=== PATIENT | male | born 1965 | race Caucasian/White ===

== ENCOUNTER 2021-12-16 10:17 | Outpatient (CLI) | payer MEDICAID, SELFPAY ==
--- NOTE | 2021-12-16 10:21 | CT_ITS ---
WS: [id number] LDCT LUNG CANCER SCREENING HISTORY: NICOTINE DEPENDENCE TECHNIQUE: Axial imaging performed from the apices to 1 cm below the costophrenic angles. Coronal and sagittal reformats are submitted with axial MIP series. All CT scans at [facility] use at least one of these dose optimization techniques: automated exposure control; mA and/or kV adjustment per patient size (includes targeted exams where dose is matched to clinical indication); or iterativ e reconstruction. DLP: 74.09 mGy.cm DIvol: Mean CTDIvol: 1.60 (mGy) COMPARISON: None available. Diagnostic quality: Satisfactory Lung Nodules: Pleural-based wedge-shaped nodule along the RIGHT minor fissure measures 15 mm. Irregul ar nodule extends along the minor fissure towards the RIGHT upper lobe. Otherwise lungs are clear. No additional mass or nodule. No endobronchial lesion. Heart: Normal size heart. No pericardial effusion. Other findings: No mediastinal or hilar adenopathy. Mild atherosclerosis aorta. Small hiatal hernia. No adrenal mass. Thoracic spondylitic changes. CT/CT lung screening [id number] IMPRESSION: LUNG-RADS: 4B-Suspicious FOLLOW UP: Chest CT with or without contrast OTHER FINDINGS (S MODIFIER): None.
== END 2021-12-16 10:18 | disposition home or self-care (01) ==
LOC: RAD 10:19
PROVIDERS: PCP Nurse Practitioner Family; Visit Provider Nurse Practitioner Family
DX: Z12.2 Encounter for screening for malignant neoplasm of respiratory organs (principal); F17.210 Nicotine dependence, cigarettes, uncomplicated
CPT/HCPCS: 71271

== ENCOUNTER → 2022-01-08 13:20 | Outpatient (BNVA) | payer MEDICAID, SELFPAY | PROVIDERS: PCP Nurse Practitioner Family; Visit Provider Internal Medicine Pulmonary Disease | DX: J45.909 Unspecified asthma, uncomplicated (principal); R06.02 Shortness of breath; J44.9 Chronic obstructive pulmonary disease, unspecified; Z71.6 Tobacco abuse counseling; F17.200 Nicotine dependence, unspecified, uncomplicated; R91.1 Solitary pulmonary nodule | CPT/HCPCS: 36415; 82103; 82785; 85025; 85651; 86003 ==

== ENCOUNTER 2022-03-24 14:42 | Outpatient (CLI) | payer MEDICAID, SELFPAY ==
--- NOTE | 2022-03-24 14:00 | CTR_ITS ---
PROCEDURE INFORMATION: Exam: CT Chest Without Contrast; Diagnostic Exam date and time: 03/24/2022 2:47 PM Age: 57 years old Clinical indication: Abnormal findings; Lung mass or nodule; Not specified; Patient HX: 3 month follow up lung nodules seen on lung cancer screening CT; Additional info: 3 month f/u lung nodule TECHNIQUE: Imaging protocol: Diagnostic computed tomography of the chest without contrast. Radiation optimization: All CT scans at this facility use at least one of these dose optimization techniques: automated exposure control; mA and/or kV adjustment per patient size (includes targeted exams where dose is matched to clinical indication); or iterative reconstruction. COMPARISON: CT lung screening [id number] 12/16/2021 10:23 AM RADIATION DOSE METRICS: Total DLP (mGy-cm): 810 FINDINGS: Lungs: There is irregular pleural thickening or nodule along the right chest wall and involving the minor fissure measuring approximately 13 x 20 x 6 mm in thickness. Allowing for the technical differences between the studies this is not significantly changed. The appearance is most suggestive of an area of pleural scarring. Additional six-month follow-up is suggested. As this was described as suspicious on the report of 12/16/2021 it may be prudent to get further evaluation such as with tissue sampling or PET-CT scan suggested for further evaluation of this is not already been done. Pleural spaces: See Lungs finding. No pleural effusion. Heart: Unremarkable. No cardiomegaly. No pericardial effusion. Coronary arteries: There is no evidence of atherosclerotic coronary artery calcifications. Lymph nodes: There are small paratracheal lymph nodes not significantly changed but no adenopathy. Vasculature: Unremarkable. No aortic aneurysm. Bones/joints: Unremarkable. No acute fracture. Soft tissues: There is mild nonspecific gynecomastia. CT/CT chest wo con [id number] IMPRESSION: Pleural base nodule or scarring in the right lung not significantly changed from 12/16/2021. Further evaluation or follow-up is recommended above.
== END 2022-03-24 14:43 | disposition home or self-care (01) ==
LOC: RAD 14:42
PROVIDERS: PCP Nurse Practitioner Family; Visit Provider Internal Medicine Pulmonary Disease
DX: R91.1 Solitary pulmonary nodule (principal)
CPT/HCPCS: 71250

== ENCOUNTER 2022-07-13 14:58 | Outpatient (CLI) | payer MEDICAID, SELFPAY ==
--- NOTE | 2022-07-13 15:08 | CT_ITS ---
WS: [id number] CT ABDOMEN WITHOUT CONTRAST HISTORY: ABDOMINAL PAIN Contiguous single phase 5 mm axial imaging performed to the abdomen. Oral contrast has not been provi ded. Coronal and sagittal reformats are submitted. All CT scans at [facility] use at least on e of these dose optimization techniques: automated exposure control; mA and/or kV adjustment per alvarez ent size (includes targeted exams where dose is matched to clinical indication); or iterative reconst ruction. IV CONTRAST: None Oral contrast: No DLP: 258.74 mGy.cm COMPARISON: None available. Lower thorax: Lung bases are clear. Heart is normal size. Small hiatal hernia. Liver/biliary system: Normal size with no intrahepatic dilatation. Gallbladder: Normal. No gallstones or wall thickening. No pericholecystic fluid. Pancreas: Normal size pancreas and pancreatic duct. No adjacent inflammation. Spleen: Normal size spleen. No mass or infarct. Adrenal glands: Normal. Right kidney: No obstruction. Left kidney: Minimal perinephric stranding. No obstruction. Aorta: Mild atherosclerosis with no aneurysm. Lymphadenopathy: None. Free fluid: None. GI tract: As visualized within the abdomen normal. Normally distended stomach. Mild constipation with in the transverse and ascending colon. No obstructive pattern. Abdominal wall: Unremarkable abdominal wall. No hernia. Visualized osseous structures: Mild degenerative spondylitic changes in the lumbar spine. CT/CT abdomen wo con [id number] IMPRESSION: 1. No acute abdominal abnormalities identified. 2. Mild constipation the visualized transverse and ascending colon. 3. No renal obstruction. 4. No abdominal wall hernia.
== END 2022-07-13 14:59 | disposition home or self-care (01) ==
LOC: RAD 15:01
PROVIDERS: PCP Nurse Practitioner Family; Visit Provider Nurse Practitioner Family
DX: R10.9 Unspecified abdominal pain (principal); K59.00 Constipation, unspecified
CPT/HCPCS: 74150

== ENCOUNTER 2022-10-25 17:38 | Emergency (ER) | payer MEDICAID, SELFPAY ==
[2022-10-25 17:51] VITALS: BP 138/88; PULSE 84; RESP 16; TEMP 36.8; O2SAT 97; BMI 23.5
--- NOTE | 2022-10-25 18:33 | W.ED.DENTAL ---
HPI - Dental/Oral General: Chief complaint: Dental/Oral Stated complaint: dental Time Seen by Provider: 10/25/22 18:32 History of Present Illness: 57-year-old male patient comes in today for complaints of right side jaw pain. Patient was started on clindamycin yesterday but reported minimal relief of pain with [id number] Tylenol and ibuprofen. Patient was also concerned due to some swelling that he felt that may have been worse. Patient appears nontoxic. Patient appears in mild to moderate pain. Associated symptoms: Denies fever(s) Review of Systems General: Reports: 10 or more systems reviewed and unremarkable except in HPI and below Const: Denies: fever(s) ENMT: Reports: dental pain Card: Denies: chest pain Resp: Denies: dyspnea GI: Denies: nausea or vomiting : Denies: flank pain Musc: Denies: neck pain Skin/Breast: Denies: rash PFSH ED PFSH: Medical History Scoliosis Type 2 diabetes mellitus Surgical History H/O left wrist surgery Social History Smoking and tobacco status: former smoker Physical Exam Const: COMMON NORMALS: alert HENMT: COMMON NORMALS: normocephalic HEAD & SCALP: normocephalic MOUTH: Normal oral and palatal mucosa present Neck/C-Spine: COMMON NORMALS: full ROM Resp: COMMON NORMALS: normal respiratory effort and clear to auscultation bilaterally AUSCULTATION: clear to auscultation bilaterally Cardio: COMMON NORMALS: regular rate RATE: regular rate GI: COMMON NORMALS: non-tender Back/Pelvis: COMMON NORMALS: thoracic and lumbar spine normal to inspection Extremity: COMMON NORMALS: full ROM Neuro: SENSORIUM/ORIENTATION: Yes alert Skin: COMMON NORMALS: turgor normal GENERAL SKIN EXAM: turgor normal Course Vital Signs: Vital signs: Vital Signs Temperature 98.2 F 10/25/22 17:51 Pulse Rate 84 10/25/22 17:51 Respiratory Rate 16 10/25/22 17:51 Blood Pressure 138/88 10/25/22 17:51 Pulse Oximetry 97 10/25/22 17:51 Oxygen Delivery Me thod Room Air 10/25/22 17:51 MDM - Dental/Oral Medical Decision Making 57-year-old male patient comes in today for complaints of increased dental pain. On exam patient has a carious tooth of the second molar with a missing first molar. Patient has erythema to the lateral gumline with swelling. Differential diagnosis includes but not limited to retropharyngeal abscess, floor mouth cellulitis, dental abscess, dental pain, dental caries. Believe the patient has a superficial dental abscess. No asymmetry is noted in the posterior pharynx. No other signs of severe illness is noted. Patient was given a dose of ceftriaxone IM due to his concern of worsening infection, he was recommended to continue with the clindamycin otherwise. Patient was given 30 mg of Toradol for his pain. Patient be continued on some hydrocodone for further pain relief at home. Patient reported understanding of care plan and need for follow-up or return to the ER. Discharge Plan Discharge Patient Disposition: Home Clinical Impression: Dental abscess Condition: Stable Prescriptions: New hydrocodone-acetaminophen 5-325 mg tablet 1 tab PO Q6H PRN (Reason: pain (scale score 7-10)) Qty: 7 0RF No Action epinephrine [EpiPen 2-Ilan] 0.3 mg/0.3 mL auto-injector 0.3 ml IM clindamycin HCl 150 mg capsule 450 mg PO TID 7 Days Qty: 63 0RF metformin 500 mg tablet 500 mg PO BID lisinopril 10 mg tablet 5 mg PO DAILY simvastatin 20 mg tablet 20 mg PO DAILY Discharge Orders: Discharge ED (Routine); Ordered 10/25/22 Ordered By: Jamie Coleman Referrals: Shellie Nails FNP [Primary Care Provider] - Discharge Diet: Usual diet Discharge Activity: Increase activity as tolerated Patient Instructions: Dental Abscess (ED), Opioid Safety Activity Restrictions/Additional Instructions: Home and rest. Drink plenty of water and fluids. Use acetaminophen and ibuprofen to control pain. Use hydrocodone for severe pain. Continue oral antibiotics as prescribed. Follow-up with dentist. Return to ED for worsening symptoms such as inability to hold fluids down, difficulty with swallowing, or shortness of breath. Coding Level of Care Code ED Group Marketing Vp for Herson Hoskins
[2022-10-25] MEDS: HYDROcodone-acetaminophen 5-325 mg Tablet 1 TAB PO (18:49)
[2022-10-25] MEDS: ketorolac 30 mg/mL INJ IM (18:49)
[2022-10-25] MEDS: cefTRIAXone 1,000 MG in water for injection-sterile 2.1 ML 2 MG IM (18:50)
== END 2022-10-25 19:15 | disposition home or self-care (01) ==
PROVIDERS: Emergency Provider Nurse Practitioner Family; PCP Nurse Practitioner Family
DX: K04.7 Periapical abscess without sinus (principal); E11.9 Type 2 diabetes mellitus without complications; Z79.84 Long term (current) use of oral hypoglycemic drugs; Z87.891 Personal history of nicotine dependence
CPT/HCPCS: 96372; 99284; J0696; J1885

== ENCOUNTER 2023-05-10 15:17 | Emergency (ER) | payer MEDICAID, SELFPAY ==
[2023-05-10 15:25] VITALS: BP 121/76; PULSE 93; RESP 12; TEMP 36.7; O2SAT 96; BMI 25.7
--- NOTE | 2023-05-10 15:30 | XRR_ITS ---
PROCEDURE INFORMATION: Exam: XR Chest Exam date and time: 05/10/2023 3:49 PM Age: 58 years old Clinical indication: Pain; Angina pectoris; Additional info: Chest pain TECHNIQUE: Imaging protocol: Radiologic exam of the chest. Views: 1 view. COMPARISON: CT chest con [id number] 03/24/2022 2:47 PM FINDINGS: Lungs: Unremarkable. No consolidation. Pleural spaces: Unremarkable. No pleural effusion. No pneumothorax. Heart/Mediastinum: Unremarkable. No cardiomegaly. Bones/joints: Unremarkable. XR/XR chest 1V portable [id number] IMPRESSION: No acute findings.
--- NOTE | 2023-05-10 15:30 | ECG_ITS ---
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 Measurements Intervals [place] Rate: 101 P: 83 HI: 148 QRS: 80 QRSD: 94 T: 67 QT: 332 QTc: 431 Interpretive Statements SINUS TACHYCARDIA No previous ECG available for comparison Electronically Signed On 05-10-2023 17:07:31 MARKET REPORTER by Dk Wood M.D. [id number]
[2023-05-10 16:28] LABS: Basophils # 0.1 10^3/uL (0.0-0.1); Basophils % 0.5 %; Eosinophils # 0.4 10^3/uL (0.0-0.8); Eosinophils % 3.5 %; Hematocrit 51.1 % (37-53); Lymphocytes # 2.2 10^3/uL (0.8-4.8); Lymphocytes % 21.4 %; Mean Corpuscular Hemoglobin 33.3 pg (27-33); Mean Platelet Volume 8.8 fL (7.4-10.4); Monocytes # 0.7 10^3/uL (0.2-0.9); Monocytes % 6.3 %; Neutrophils # 7.01 10^3/uL (1.8-7.7); Nucleated Red Blood Cells % 0 %; Platelet Count 222 10^3/cmm (157-399); Red Blood Count 5.38 10^6/uL (3.85-5.65)
[2023-05-10 16:53] LABS: Troponin(5th) Baseline 9 ng/L (0-15)
[2023-05-10 16:57] LABS: Alanine Aminotransferase 14 U/L (0-41); Albumin Level 4.9 g/dL (3.5-5.2); Alkaline Phosphatase 83 U/L (40-130); Anion Gap 16.7 (5-19); Aspartate Amino Transferase 17 U/L (0-40); Blood Urea Nitrogen 24 mg/dL (6-20); Calcium 9.5 mg/dL (8.5-10.5); Carbon Dioxide 25 mmol/L (22-29); Chloride 102 mmol/L (98-107); Globulin 2.6 g/dL (1.3-4.6); Glucose 141 mg/dL (65-115); Osmolality Calculated 294 mOsm/kg (285-295); Potassium 4.7 mmol/L (3.5-5.1); Sodium 139 mmol/L (136-145); Total Bilirubin 0.6 mg/dL (0.15-1.2); Total Protein 7.5 g/dL (6.6-8.7)
--- NOTE | 2023-05-10 17:37 | W.ED.CHESTPA ---
HPI - Chest Pain General: Chief Complaint: Chest Pain Stated Complaint: CHEST DISCOMFORT, PAIN IN BACK Time Seen by Provider: 05/10/23 17:32 History of Present Illness: 58-year-old male presents emergency department complaints of left upper back sharp stabbing pain that started when he woke up. He states the pain initially started out as an 8 and went to a 9 and is now at a 0 out of 10. He states that he felt like his pulse was racing and he was nauseated at the time that he woke up. He states his son came over and gave him some aspirin to chew and encouraged him to come be evaluated in the emergency department. He states he has no cardiac history and has never had heart problems. He states he intermittently smokes cigarettes and marijuana but nothing on a regular basis. He states he is pain-free at present. He denies shortness of breath nausea vomiting fevers chills or night sweats. He denies dizziness or feelings of syncope. Review of Systems General: Reports: 10 or more systems reviewed and unremarkable except in HPI and below Musc: Reports: back pain [facility] ED PFSH: Medical History Scoliosis Type 2 diabetes mellitus Surgical History H/O left wrist surgery Social History Smoking and tobacco/nicotine status: former use of tobacco/nicotine Physical Exam Narrative: EXAM NARRATIVE: Constitutional: the patient appears well nourished and of normal development. Vital signs as documented. No acute distress at present. Alert and oriented-to person, place, time and situation. Head, eyes, ears, nose, mouth, throat: Normocephalic, atraumatic. Pupils-equal, round, reactive to light. No scleral icterus. Normal-appearing external ears. Normal appearing nasal turbinates, no drainage. No obvious oral lesions, posterior oropharynx without erythema or exudates. Neck: Supple, trachea is midline, no lymphadenopathy, no jugular venous distension, thyromegaly, or carotid bruits. Carotid upstrokes are brisk bilaterally. Lungs: clear to auscultation to all lung last. Symmetrical rise and fall of chest, no obvious signs of increased work of breathing at present. Cardiac: Regular rate and rhythm, positive S1, S2. No murmurs, rubs or gallops that I can appreciate Abdomen: Soft, non-tender to palpation, normal active bowel sounds to all quadrants. No palpable masses, no organomegaly and abdominal bruits. Extremities: 2+ pulses in the upper extremities that are equal bilaterally, 2+ pulses in the lower extremities that are equal bilaterally. Non-edematous. Moves all extremities well, sensation to all extremities are noted. Skin: Warm, dry, intact. Course Vital Signs: Vital signs: Vital Signs Temperature 98.0 F 05/10/23 15:25 Pulse Rate 93 05/10/23 15:25 Respiratory Rate 12 05/10/23 15:25 Blood Pressure 121/76 05/10/23 15:25 Pulse Oximetry 96 05/10/23 15:25 Oxygen Delivery Me thod Room Air 05/10/23 15:25 MDM - Chest Pain Medical Decision Making Physical exam completed and documented I will obtain a chest x-ray twelve-lead EKG cardiac enzymes as well as a CBC and CMP. I suspect most likely the patient's left upper back discomfort is related to musculoskeletal spasm and not cardiac related. Given the patient's negative findings and lack of significant EKG findings I will discharge the patient and recommend follow-up with his primary care provider. Medical Records I reviewed the patient's medical records. Lab Data I reviewed the patient's lab results. 05/10/23 16:11 05/10/23 16:11 Radiology Impressions Chest X-Ray 05/10/23 15:30 IMPRESSION: No acute findings. Laboratory Results WBC 10.30 10^3/uL (3.29-11.43) 05/10/23 16:11 RBC 5.38 10^6/uL (3.85-5.65) 05/10/23 16:11 Hgb 17.90 g/dL (11.27-16.99) H 05/10/23 16:11 Hct 51.1 % (37-53) 05/10/23 16:11 MCV 95.0 fl (82-101) 05/10/23 16:11 MCH 33.3 pg (27-33) H 05/10/23 16:11 MCHC 35.0 g/dL (30-55) 05/10/23 16:11 RDW 12.0 % (12.1-15.1) L 05/10/23 16:11 Plt Count 222 10^3/cmm (157-399) 05/10/23 16:11 MPV 8.8 fL (7.4-10.4) 05/10/23 16:11 Neut % (Auto) 68.0 % 05/10/23 16:11 Lymph % (Auto) 21.4 % 05/10/23 16:11 [place] % (Auto) 6.3 % 05/10/23 16:11 Eos % (Auto) 3.5 % 05/10/23 16:11 Baso % (Auto) 0.5 % 05/10/23 16:11 Neut # (Auto) 7.01 10^3/uL (1.8-7.7) 05/10/23 16:11 Lymph # (Auto) 2.2 10^3/uL (0.8-4.8) 05/10/23 16:11 [place] # (Auto) 0.7 10^3/uL (0.2-0.9) 05/10/23 16:11 Eos # (Auto) 0.4 10^3/uL (0.0-0.8) 05/10/23 16:11 Baso # (Auto) 0.1 10^3/uL (0.0-0.1) 05/10/23 16:11 Nucleated RBC % (auto) 0 % 05/10/23 16:11 Nucleated RBCs # 0.0 /100WBC 05/10/23 16:11 Sodium 139 mmol/L (136-145) 05/10/23 16:11 Potassium 4.7 mmol/L (3.5-5.1) 05/10/23 16:11 Chloride 102 mmol/L (98-107) 05/10/23 16:11 Carbon Dioxide 25 mmol/L (22-29) 05/10/23 16:11 Anion Gap 16.7 (5-19) 05/10/23 16:11 BUN 24 mg/dL (6-20) H 05/10/23 16:11 Creatinine 0.9 mg/dL (0.7-1.2) 05/10/23 16:11 GFR Calculation 87.0 mL/min (90-130) L 05/10/23 16:11 Glucose 141 mg/dL (65-115) H 05/10/23 16:11 Calculated Osmolality 294 mOsm/kg (285-295) 05/10/23 16:11 Calcium 9.5 mg/dL (8.5-10.5) 05/10/23 16:11 Total Bilirubin 0.6 mg/dL (0.15-1.2) 05/10/23 16:11 AST 17 U/L (0-40) 05/10/23 16:11 ALT 14 U/L (0-41) 05/10/23 16:11 Alkaline Phosphatase 83 U/L (40-130) 05/10/23 16:11 Troponin T Baseline 9 ng/L (0-15) 05/10/23 16:11 Total Protein 7.5 g/dL (6.6-8.7) 05/10/23 16:11 Albumin 4.9 g/dL (3.5-5.2) 05/10/23 16:11 Globulin 2.6 g/dL (1.3-4.6) 05/10/23 16:11 All radiology interpretation(s) finalized by discharge EKG Data EKG 1: Interpretation: Twelve-lead EKG obtained at 1520 reviewed at 15 35 demonstrates sinus tachycardia with a heart rate of 101, WA interval 148, QRS duration 94, QT 332, QTc 390 at present there is no ST elevation or depression to demonstrate acute ischemia or infarction. EKG 2: Interpretation: Repeat twelve-lead EKG at 1740 and reviewed at 1742 demonstrates sinus rhythm, ventricular rate 83, WA interval 190, QRS duration 97, QT 370, QTc [address] elevation or depression to demonstrate acute ischemia or infarction at present. Discharge Plan Discharge Patient Disposition: Home Clinical Impression: Spasm of skeletal muscle of thorax, Back pain Condition: Stable Prescriptions: No Action epinephrine [EpiPen 2-Ilan] 0.3 mg/0.3 mL auto-injector 0.3 ml IM metformin 500 mg tablet 500 mg PO BID lisinopril 10 mg tablet 5 mg PO DAILY simvastatin 20 mg tablet 20 mg PO DAILY hydrocodone-acetaminophen 5-325 mg tablet 1 tab PO BID PRN (Reason: pain) 3 Days Qty: 6 0RF doxycycline monohydrate 100 mg capsule 100 mg PO BID 10 Days Qty: 20 0RF Discharge Orders: Discharge ED (Routine); Ordered 05/10/23 Ordered By: Julio Thompson Referrals: Shellie Nails FNP [Primary Care Provider] - Discharge Diet: Usual diet Discharge Activity: Resume usual activity Patient Instructions: Opioid Safety, Pain Management Activity Restrictions/Additional Instructions: Activity Restrictions/Additional Instructions: Thank you for choosing [facility] for your healthcare needs today. Please realize that you were seen in the Emergency Department and that we are providing you with an emergency medical screening exam and this may not be a complete and all inclusive of all the testing and or medical work-up that you may need to determine your ailment or severity of your illness. It is very important that you follow-up as instructed with your Primary care provider or Specialist for additional evaluation and to discuss your medical treatment plan. You may return to the Emergency Department should you have concerns or if your condition changes or worsens in any way. Coding Level of Care Code ED Biofuels Manager for Herson Hoskins
--- NOTE | 2023-05-10 17:40 | ECG_ITS ---
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 Measurements Intervals [place] Rate: 83 P: 82 DE: 190 QRS: 69 QRSD: 97 T: 65 QT: 370 QTc: 435 Interpretive Statements SINUS RHYTHM SEPTAL MYOCARDIAL INFARCTION , PROBABLY OLD [40+ ms Q WAVE IN V1/V2] Compared to ECG 05/10/2023 15:20:18 Myocardial infarct finding now present Sinus tachycardia no longer present Electronically Signed On 05-11-2023 9:48:24 PEDIATRIC ANESTHESIOLOGIST by Dk Wood M.D. [email or web address]/store/OM/[id number]
== END 2023-05-10 18:25 | disposition home or self-care (01) ==
PROVIDERS: Family Medicine; Emergency Provider Internal Medicine; PCP Nurse Practitioner Family
DX: M62.830 Muscle spasm of back (principal); Z79.84 Long term (current) use of oral hypoglycemic drugs; E11.9 Type 2 diabetes mellitus without complications; Z87.891 Personal history of nicotine dependence
CPT/HCPCS: 36415; 71045; 80053; 84484; 85025; 93005; 99285

== ENCOUNTER 2024-11-21 09:18 | Outpatient (CLI) | payer MEDICAID, SELFPAY ==
--- NOTE | 2024-11-21 09:25 | CT_ITS ---
WS: [id number] LDCT LUNG CANCER SCREENING TECHNIQUE: Noncontrast CT of the chest with coronal and sagittal reformatted images. CLINICAL INFORMATION: HX OF TOBACCO USE COMPARISON: 03/24/2022 and 2021 DLP: 73.91 mGy.cm DIvol: Mean CTDIvol: 1.40 (mGy) All CT scans at [facility] use at least one of these dose optimization techniques: automated exposure control; mA and/or kV adjustment per patient size (includes targeted exams where dose is matched to clinical indication); or iterative reconstruction. FINDINGS: Pleural-based slightly spiculated nodule along the RIGHT fissure is stable compared to the prior studies considering differences in technique. This measures approximately 1.4 x 2.0 cm in maximum dimension. Recommend additional 6-month follow-up to confirm stability. No new suspicious pulmonary parenchymal abnormalities. No mediastinal or hilar lymphadenopathy. Aortic calcification. Small esophageal hiatal hernia. Moderate spondylitic changes thoracic spine. No axillary lymphadenopathy. CT/CT lung screening [id number] IMPRESSION: LUNG-RADS: 3-Probably Benign FOLLOW UP: 6 Month LDCT
== END 2024-11-21 09:19 | disposition home or self-care (01) ==
LOC: RAD 09:20
PROVIDERS: PCP Nurse Practitioner Family; Visit Provider Nurse Practitioner Family
DX: Z12.2 Encounter for screening for malignant neoplasm of respiratory organs (principal); Z87.891 Personal history of nicotine dependence; R91.1 Solitary pulmonary nodule
CPT/HCPCS: 71271

== ENCOUNTER 2024-12-29 14:48 | Emergency (ER) | payer MEDICAID, SELFPAY ==
[2024-12-29 14:58] VITALS: BP 122/82; PULSE 75; RESP 18; TEMP 36.7; O2SAT 99
--- NOTE | 2024-12-29 16:21 | ED_ITS ---
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 Patient states this occurred at 1415 today. It was approximately 1-1/2-hour after lunch. He had association of nausea, vomiting. This resolved prior to arrival. Profound history: Patient has had ongoing symptoms of dizziness for the last 8 months. This has been on and off. He has went to his primary care physician, that recommended CT of the head. Unfortunately, his insurance did not see that he needed a CT of his head, and this has been delayed. Patient went to ENT, that recommended CT of his head, unfortunately his insurance did not see that he needed and a CT of his head, and he has not yet had 1. Today, was much worse than any of his other episodes of dizziness, associated with the diaphoresis, nausea, vomiting, and near syncope. He does not have a history of epilepsy. He has not had any recent illness. He stated it was a regular day for him. He was actually concerned with painting, that he could have been on a ladder, however he was not. No history of CVA. He does not take primary prevention aspirin. Associated symptoms: Reports vertigo; Deny abdominal pain, chest pain, fever(s), headache(s) or nausea Related Data Home Medications ?Medication ?Instructions ?Recorded ?Confirmed metformin 500 mg tablet 500 mg PO QPM 07/20/2112/29 epinephrine 0.3 mg/0.3 mL 0.3 ml IM ONCE PRN Allergic 10/24/22 12/29/24 injection, auto-injector (EpiPen Reaction 2-Ilan) loratadine 10 mg tablet (Claritin) 10 mg PO DAILY PRN allergies 06/07/23 12/29/24 Previous Rx's ?Medication ?Instructions ?Recorded azelastine 205.5 mcg (0.15 %) 2 spray intranasal BID # 30 mL 12/29/24 nasal spray clindamycin HCl 300 mg capsule 300 mg PO Q8H 10 days # 30 caps 12/29/24 (Cleocin HCl) fluticasone propionate 50 2 spray intranasal DAILY #16 grams 12/29/24 mcg/actuation nasal spray,suspension Allergies Allergy/AdvReac Type Severity Reaction Status Date / Time Penicillins Allergy Mild ADR-Nausea Verified 06/07/23 13:49 Iodinated Contrast Media Allergy ALGY-Hives Verified 05/10/23 15:25 Review of Systems 2 General: Reports: 10 or more systems reviewed and unremarkable except in HPI and below Const: Denies: fever(s) or chills Eyes: Reports: change in vision ENMT: Reports: tinnitus (bilateral); Denies: ear or mastoid pain, ear discharge or change in hearing (bilateral ) Card: Denies: chest pain or palpitations Resp: Denies: dyspnea or non-productive cough GI: Denies: abdominal pain, nausea or vomiting Musc: Denies: neck pain, back pain or extremity pain Neuro: Reports: dizziness and vertigo; Denies: headache(s), numbness in extremities or weakness in extremities PFSH ED 2 PFSH: Medical History (Updated 12/29/24 @ 18:16 by ABDULAZIZ Harman) Type 2 diabetes mellitus Scoliosis Surgical History (Updated 06/07/23 @ 14:23 by Nolan Jaramillo MD) H/O colonoscopy with polypectomy H/O left wrist surgery Social History Smoking and tobacco/nicotine status: former use of tobacco/nicotine Physical Exam 2 Const: COMMON NORMALS: no acute distress, average body habitus and patient oriented x3 HENMT: COMMON NORMALS: normocephalic and atraumatic HEAD & SCALP: n ormocephalic and atraumatic Neck/C-Spine: COMMON NORMALS: full ROM, no lymphadenopathy and supple Lymph: LYMPHATIC: no lymphadenopathy noted Chest: COMMONS NORMALS: normal inspection of the chest and normal palpation of entire chest wall Resp: COMMON NORMALS: normal respiratory effort, No retractions and clear to auscultation bilaterally AUSCULTATION: clear to auscultation bilaterally Cardio: COMMON NORMALS: regular rate and regular rhythm RATE: regular rate RHYTHM: regular rhythm GI: COMMON NORMALS: Normal to inspection, nondistended, normoactive bowel sounds present, Soft to palpation, non-tender and No hepatosplenomegaly present PALPATION: Yes Soft to palpation and Yes No hepatosplenomegaly present : COMMON NORMALS: Yes no CVA tenderness BLADDER/KIDNEY EXAM: Yes no CVA tenderness Back/Pelvis: COMMON NORMALS: no CVA tenderness Extremity: COMMON NORMALS: normal to inspection, full ROM and capillary refill normal Neuro: COMMON NORMALS: patient oriented x3 and CN's II-XII intact bilaterally Course 2 Vital Signs: Vital signs: Vital Signs Temperature 98.0 F 12/29/24 14:58 Pulse Rate 76 12/29/24 18:18 Respiratory Rate 18 12/29/24 14:58 Blood Pressure 153/90 12/29/24 18:18 Pulse Oximetry 98 12/29/24 18:18 Oxygen Delivery Me thod Room Air 12/29/24 14:58 MDM - Syncope Medical Decision Making Orthostatic vital signs done by myself at bedside without change to blood pressure. Will continue with concern of additional differentials including central and peripheral association of vertigo. This has been ongoing for 8 months, however is much worse, and he has never had issues like he had today. Will start with CT of the head, as this that should have been approved by his insurance before today, but for what ever reason we will make sure this patient is taken care of today in the ER since this is much worse when his insurance did not feel it was necessary. Paranasal sinus disease was noted on CT. Suspect this is underlying issue. Discussed with patient. Will treat accordingly. Patient to follow-up with his primary care Lab Data 12/29/24 16:40 12/29/24 16:40 Radiology Impressions Chest X-Ray 12/29/24 16:22 IMPRESSION: Minimal left basilar atelectasis/opacity. Head CT 12/29/24 16:24 IMPRESSION: 1. No intracranial abnormality. 2. Paranasal sinus disease without air-fluid levels. Laboratory Results WBC 11.65 10^3/uL (3.29-11.43) H 12/29/24 16:40 RBC 4.49 10^6/uL (3.85-5.65) 12/29/24 16:40 Hgb 14.80 g/dL (11.27-16.99) 12/29/24 16:40 Hct 42.4 % (37-53) 12/29/24 16:40 MCV 94.4 fl (82-101) 12/29/24 16:40 MCH 33.0 pg (27-33) 12/29/24 16:40 MCHC 34.9 g/dL (30-55) 12/29/24 16:40 RDW 12.4 % (12.1-15.1) 12/29/24 16:40 Plt Count 187 10^3/cmm (157-399) 12/29/24 16:40 MPV 9.0 fL (7.4-10.4) 12/29/24 16:40 Neut % (Auto) 79.1 % 12/29/24 16:40 Lymph % (Auto) 13.9 % 12/29/24 16:40 [place] % (Auto) 4.2 % 12/29/24 16:40 Eos % (Auto) 2.0 % 12/29/24 16:40 Baso % (Auto) 0.3 % 12/29/24 16:40 Neut # (Auto) 9.21 10^3/uL (1.8-7.7) H 12/29/24 16:40 Lymph # (Auto) 1.6 10^3/uL (0.8-4.8) 12/29/24 16:40 [place] # (Auto) 0.5 10^3/uL (0.2-0.9) 12/29/24 16:40 Eos # (Auto) 0.2 10^3/uL (0.0-0.8) 12/29/24 16:40 Baso # (Auto) 0.0 10^3/uL (0.0-0.1) 12/29/24 16:40 Nucleated RBC % (auto) 0 % 12/29/24 16:40 Nucleated RBCs # 0.0 /100WBC 12/29/24 16:40 Sodium 140 mmol/L (136-145) 12/29/24 16:40 Potassium 4.5 mmol/L (3.5-5.1) 12/29/24 16:40 Chloride 103 mmol/L (98-107) 12/29/24 16:40 Carbon Dioxide 26 mmol/L (22-29) 12/29/24 16:40 Anion Gap 15.5 (5-19) 12/29/24 16:40 BUN 18 mg/dL (6-20) 12/29/24 16:40 Creatinine 0.8 mg/dL (0.7-1.2) 12/29/24 16:40 GFR Calculation 99.3 mL/min (90-130) 12/29/24 16:40 Glucose 125 mg/dL (65-115) H 12/29/24 16:40 Calculated Osmolality 293 mOsm/kg (285-295) 12/29/24 16:40 Lactic Acid 0.7 mmol/L (0.5-2.2) 12/29/24 16:40 Calcium 9.7 mg/dL (8.5-10.5) 12/29/24 16:40 Magnesium 2.1 mg/dL (1.7-2.3) 12/29/24 16:40 Total Bilirubin 0.3 mg/dL (0.15-1.2) 12/29/24 16:40 AST 16 U/L (0-40) 12/29/24 16:40 ALT 14 U/L (0-41) 12/29/24 16:40 Alkaline Phosphatase 77 U/L (40-130) 12/29/24 16:40 Troponin T Baseline 7 ng/L (0-15) 12/29/24 16:40 C-Reactive Protein 3.0 mg/L (0.0-4.9) 12/29/24 16:40 Total Protein 7.2 g/dL (6.6-8.7) 12/29/24 16:40 Albumin 5.0 g/dL (3.5-5.2) 12/29/24 16:40 Globulin 2.2 g/dL (1.3-4.6) 12/29/24 16:40 TSH 0.66 uIU/mL (0.27-4.20) 12/29/24 16:40 Prolactin 3.25 ng/mL (4.0-15.2) L 12/29/24 16:40 Urine Color Yellow (Yellow) 12/29/24 16:54 Urine Appearance Clear (CLEAR) 12/29/24 16:54 Urine pH 5.5 (5-7) 12/29/24 16:54 Ur Specific [place] 1.018 (1.005-1.030) 12/29/24 16:54 Urine Protein Negative (Negative) 12/29/24 16:54 Urine Glucose (UA) Negative (Normal) 12/29/24 16:54 Urine Ketones Trace (Negative) 12/29/24 16:54 Urine Blood Negative (Negative) 12/29/24 16:54 Urine Nitrate Negative (Negative) 12/29/24 16:54 Urine Bilirubin Negative (Negative) 12/29/24 16:54 Urine Urobilinogen 1.0 mg/dL (Negative) 12/29/24 16:54 Ur Leukocyte Esterase Negative (Negative) 12/29/24 16:54 Urine RBC 0-4 /hpf (0-2) H 12/29/24 16:54 Urine WBC 0-4 /hpf (0-5) H 12/29/24 16:54 Ur Squamous Epith Cells 0-4 /hpf (0-5) H 12/29/24 16:54 Amorphous Sediment Not Reportable 12/29/24 16:54 Urine Bacteria Trace /hpf (NONE) 12/29/24 16:54 Coarse Granular Casts 0-4 /lpf H 12/29/24 16:54 All radiology interpretation(s) finalized by discharge EKG Data EKG 1: Interpretation: Normal sinus rhythm, normal axis Discharge Plan Discharge Patient Disposition: Home Clinical Impression: Paranasal sinus disease, Vertigo, Atelectasis Condition: Stable Prescriptions: New azelastine 205.5 mcg (0.15 %) spray,non-aerosol 2 spray intranasal BID Qty: 30 0RF Rx Instructions: administer into each nostril fluticasone propionate 50 mcg/actuation spray,suspension 2 spray intranasal DAILY Qty: 16 0RF Rx Instructions: administer into each nostril clindamycin HCl [Cleocin HCl] 300 mg capsule 300 mg PO Q8H 10 Days Qty: 30 0RF No Action epinephrine [EpiPen 2-Ilan] 0.3 mg/0.3 mL auto-injector 0.3 ml IM ONCE PRN (Reason: Allergic Reaction) metformin 500 mg tablet 500 mg PO QPM loratadine [Claritin] 10 mg tablet 10 mg PO DAILY PRN (Reason: allergies) Discharge Orders: Discharge ED (Routine); Ordered 12/29/24 Ordered By: Kendy Jeffries Referrals: Leigha Hickman FNP [Primary Care Provider, Primary Care Provider] Discharge Diet: Usual diet Discharge Activity: Resume usual activity Patient Instructions: Patient Portal & [place] Instructions Activity Restrictions/Additional Instructions: -Nose sprays (Astepro/Flonase) have been sent to your pharmacy. Utilize as directed. I would use these before bed -Clindamycin (antibiotic) has been sent to your pharmacy. Use as directed. - With antibiotics, you should use a probiotic to avoid infectious diarrhea, or eat active culture yogurt daily - Return to ED if these symptoms occur again - Follow-up with your primary care physician. - Your CAT scan did have extensive paraspinous disease. This is most likely issue for your dizziness/vertigo. Print Language: Uzbek Coding Level of Care Code ED [employer] for [facility]
--- NOTE | 2024-12-29 16:22 | XRR_ITS ---
PROCEDURE INFORMATION: Exam: XR Chest Exam date and time: 12/29/2024 4:31 PM Age: 59 years old Clinical indication: Other: Diaphoresis TECHNIQUE: Imaging protocol: Radiologic exam of the chest. Views: 1 view. COMPARISON: CT lung screening [id number] 11/21/2024 9:42 AM FINDINGS: Lungs: Minimal left basilar atelectasis/opacity. Pleural spaces: Unremarkable. No pleural effusion. No pneumothorax. Heart/Mediastinum: Unremarkable. No cardiomegaly. Bones/joints: Unremarkable. XR/XR chest 1V portable [id number] IMPRESSION: Minimal left basilar atelectasis/opacity.
--- NOTE | 2024-12-29 16:24 | CTR_ITS ---
PROCEDURE INFORMATION: Exam: CT Head Without Contrast Exam date and time: 12/29/2024 5:22 PM Age: 59 years old Clinical indication: Dizziness; Additional info: Intermittent dizziness x 8mo TECHNIQUE: Imaging protocol: Computed tomography of the head without contrast. Radiation optimization: All CT scans at this facility use at least one of these dose optimization techniques: automated exposure control; mA and/or kV adjustment per patient size (includes targeted exams where dose is matched to clinical indication); or iterative reconstruction. COMPARISON: No relevant prior studies available. RADIATION DOSE METRICS: Total DLP (mGy-cm): 1103.08 FINDINGS: Brain: Normal. No hemorrhage. Unremarkable white matter. No mass effect. Cerebral ventricles: No ventriculomegaly. Paranasal sinuses: Isgi-lx-[id number] bilateral ethmoid sinus mucosal thickening. Mild left frontal and posterior sphenoid sinus mucosal thickening. No air-fluid levels are seen. Mastoid air cells: Visualized mastoid air cells are well aerated. Bones: Unremarkable. No acute fracture. Soft tissues: Unremarkable. CT/CT head wo con* [id number] IMPRESSION: 1. No intracranial abnormality. 2. Paranasal sinus disease without air-fluid levels.
--- NOTE | 2024-12-29 16:51 | ECG_ITS ---
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
[2024-12-29 16:53] LABS: Hematocrit 42.4 % (37-53); Hemoglobin 14.80 g/dL (11.27-16.99); Mean Corpuscular HGB Conc 34.9 g/dL (30-55); Mean Corpuscular Hemoglobin 33.0 pg (27-33); Mean Corpuscular Volume 94.4 fl (82-101); Nucleated Red Blood Cells % 0 %; Platelet Count 187 10^3/cmm (157-399); Red Blood Count 4.49 10^6/uL (3.85-5.65); White Blood Count 11.65 10^3/uL (3.29-11.43)
[2024-12-29 17:07] VITALS: BP 129/81; PULSE 69; O2SAT 97
[2024-12-29 17:07] LABS: Glucose Urine UA Negative (Normal); Nitrate Urine Negative (Negative); Specific Gravity, Urine 1.018 (1.005-1.030)
[2024-12-29 17:11] LABS: Troponin(5th) Baseline 7 ng/L (0-15)
[2024-12-29 17:13] LABS: Lactic Sepsis W/Reflex 0.7 mmol/L (0.5-2.2)
[2024-12-29 17:23] LABS: Alanine Aminotransferase 14 U/L (0-41); Albumin Level 5.0 g/dL (3.5-5.2); Alkaline Phosphatase 77 U/L (40-130); Anion Gap 15.5 (5-19); Aspartate Amino Transferase 16 U/L (0-40); Blood Urea Nitrogen 18 mg/dL (6-20); Calcium 9.7 mg/dL (8.5-10.5); Carbon Dioxide 26 mmol/L (22-29); Chloride 103 mmol/L (98-107); Creatinine Clr Calc Pharmacy 118.6158; Globulin 2.2 g/dL (1.3-4.6); Glucose 125 mg/dL (65-115); Magnesium 2.1 mg/dL (1.7-2.3); Osmolality Calculated 293 mOsm/kg (285-295); Potassium 4.5 mmol/L (3.5-5.1); Sodium 140 mmol/L (136-145); Thyroid Stimulating Hormone 0.66 uIU/mL (0.27-4.20); Total Protein 7.2 g/dL (6.6-8.7)
[2024-12-29 17:26] LABS: Add Urine Microscopic? YES; UA Manual Slide Review YES
[2024-12-29 18:18] VITALS: BP 153/90; PULSE 76; O2SAT 98
== END 2024-12-29 18:20 | disposition home or self-care (01) ==
PROVIDERS: Emergency Provider Physician Assistant; PCP Nurse Practitioner Family
DX: J32.8 Other chronic sinusitis (principal); R42 Dizziness and giddiness; J98.11 Atelectasis; Z79.84 Long term (current) use of oral hypoglycemic drugs; Z87.891 Personal history of nicotine dependence; E11.9 Type 2 diabetes mellitus without complications
CPT/HCPCS: 36415; 70450; 71045; 80053; 81001; 83605; 83735; 84146; 84443; 84484; 85025; 86140; 93005; 99285

== ENCOUNTER → 2025-01-03 09:59 | Outpatient (BNVA) | payer MEDICAID, SELFPAY | PROVIDERS: PCP Nurse Practitioner Family; Visit Provider Internal Medicine Cardiovascular Disease | DX: Z53.9 Procedure and treatment not carried out, unspecified reason (principal) | CPT/HCPCS: 93005 ==